=== PATIENT | female | born 1985 | race Caucasian/White ===

== ENCOUNTER 2019-09-16 10:49 | Inpatient (IN) | payer OTHER ==
[2019-09-16 11:56] VITALS: BMI 29.2
--- NOTE | 2019-09-16 12:48 | HP ---
CIWA Score Nausea/Vomitin (until this morning) Muscle Tremors: 4-Moderate,w/Arms Extend Anxiety: 3 Agitation: 4-Moderately Restless Paroxysmal Sweats: 2 Orientation: 0-Oriented Tacttile Disturbances: 0-None Auditory Disturbances: 0-None Visual Disturbances: 2-Mild Sensitivity Headache: 5-Severe CIWA-Ar Total Score: 22 - Admission Criteria OASAS Guidelines: Admission for Medically Managed Detox: Requires at least one of the followin. CIWA greater than 12 2. Seizures within the past 24 hours 3. Delirium tremens within the past 24 hours 4. Hallucinations within the past 24 hours 5. Acute intervention needed for co occurring medical disorder 6. Acute intervention needed for co occurring psychiatric disorder 7. Severe withdrawal that cannot be handled at a lower level of care (continued vomiting, continued diarrhea, abnormal vital signs) requiring intravenous medication and/or fluids 8. Admission [facility] Chief Complaint: Alcohol withdrawal Allergies/Adverse Reactions: Allergies Allergy/AdvReac Type Severity Reaction Status Date / Time No Known Allergies Allergy Verified 09/16/19 11:49 History of Present Illness: 33 y/o F with history of alcohol abuse presenting to [facility] because of alcohol withdrawal symptoms. Pt admits that she has been drinking for the past 14 yrs. It started in college as happy hour 2-3 times a week then gradually increased to daily alcohol intake. For the past week, she has been drinking about 3 pints of whiskey a day in between 2 packs of beers. She was initially sober for 1 year and picked up drinking again after losing her job with [employer] and living in a intermediate for the past 4 months. She endorsed history of blackouts in the past (3-4x) with last one being in 2016. She denies any seizures during withdrawals. She denies any other substance use. She has gone through detox 5 times with last detox in 2017 and relapsed immediately. She started outpatient, successfully completed it and remained sober until recently. She completed 28d rehab at [facility] after her outpatient. She went to [place] yesterday as she was severely withdrawing with symptoms of tremors, nausea, vomiting 3-4x NB yellow fluid, palpitations, diaphoresis. She received 2 librium pills and requested detox and that is why she is here. PMH : HLD Psych Hx: anxiety and depression was on meds and stopped as "she doesnt like to take pills" PSH: none Social Hx: currently living in intermediate, unemployed, poor oral intake VS 99.1F, 142/98 mmHg, 105 bpm, 22 CIWA 22 Utox: negative, NURY 0 PE: General : anxious and restless HEENT: PERRLA, flushed on the face Lung : VBS b/l Heart: tachycardic, RRR, no MRG Abdomen: some epigastric tenderness from vomiting Extremities: tremors on arm extension Plan : alcohol abuse : Valium detox - Ebola screening Have you traveled outside of the country in the last 21 days: No Have you had contact with anyone from an Ebola affected area: No Do you have a fever: No Patient History - Smoking Cessation Smoking history: Never smoked Initiated information on smoking cessation: No - Substances abused Alcohol Substance route: Oral Frequency: Daily Amount used: 7 24 oz beers and pint of whiskey Age of first use: 12 Date of last use: 09/15/19 Admission Physical Exam [facility] - Vital Signs Vital Signs: Vital Signs - 24 hr 09/16/19 11:43 Temperature 99.1 F Pulse Rate 105 H Respiratory 22 H Rate Blood Pressure 142/98 Cleared for Admission S - Detox or Rehab [facility] Level of Care: Medically Supervised Screened but not Admitted - Documentation of Visit Screened but not Admitted: No Breathalyzer - Breathalyzer Breathalyzer: 0 Urine Drug Screen - Test Device Lot number: [id number] Expiration date: 05/26/21 - Control Is test valid?: Yes - Results Drug screen NEGATIVE: Yes Inpatient Rehab Admission - Rehab Decision to Admit Inpatient rehab admission?: No
--- NOTE | 2019-09-16 13:49 | PN ---
"Teaching Attending Note Name of Resident: Raiza Chery ATTENDING PHYSICIAN STATEMENT I saw and evaluated the patient. I reviewed the resident's note and discussed the case with the resident. I agree with the resident's findings and plan as documented. SUBJECTIVE: 33 y.o. pt requesting detox from etoh use, reports binge- drinking x 1 week , prior sobriety x 1 year . OBJECTIVE:wnwd , anxious, tremors geovanni UE CV : tachycardia This report was requested by: Ekta Tenorio | Reference #: [id number] Others' Prescriptions Patient Name: Giana Degroot Date: 1985 Address: [address] [place] [address] Sex: Female Rx Written Rx Dispensed Drug Quantity Days Supply Prescriber Name 04/21/2019 04/24/2019 testosteron cyp 1000 mg/10 ml 10ml 5 Joslyn Ventura (REHABILITATION SERVICES COORDINATOR-[facility]) Vital Signs - 24 hr 09/16/19 11:43 Temperature 99.1 F Pulse Rate 105 H Respiratory 22 H Rate Blood Pressure 142/98 ASSESSMENT AND PLAN:Alcohol abuse - Valium detox"
[2019-09-16] MEDS ORDERED: MAG HYDROX/AL HYDROX/SIMETH 30 ML UNIT-DOSE CUP PO PRN (14:06)
[2019-09-16] MEDS ORDERED: BISMUTH SUBSALICYLATE 262 MG/15 ML BTL PO PRN (14:06)
[2019-09-16] MEDS ORDERED: MAGNESIUM HYDROX 2400MG/30ML ORAL SUSPENSION 30 ML CUP PO PRN (14:06)
[2019-09-16] MEDS ORDERED: ONDANSETRON *ODT* 4 MG TABLET SL PRN (14:06)
[2019-09-16] MEDS ORDERED: MENTHOL/PHENOL 1 EACH UD MM PRN (14:06)
[2019-09-16] MEDS ORDERED: MAGNESIUM CITRATE 300 ML BOTTLE PO PRN (14:06)
[2019-09-16] MEDS ORDERED: ACETAMINOPHEN 325 MG TABLET (FP) PO PRN ×2 (14:06)
[2019-09-16] MEDS ORDERED: hydrOXYzine PAMOATE 25 MG CAPSULE (FP) PO PRN (14:06)
[2019-09-16] MEDS ORDERED: diazePAM 5 MG TABLET PO PRN (14:07)
[2019-09-16] MEDS: diazePAM 5 MG TABLET PO SCH ×2 (15:18→22:20)
[2019-09-16 18:37] LABS: MCH 31.1 pg (25.7-33.7); MEAN CELL VOLUME 91.4 fl (80-96); MEAN PLT VOLUME 8.9 fl (7.5-11.1); PLATELET COUNT 351 K/MM3 (134-434); RBC 4.49 M/mm3 (3.60-5.2); RDW 15.5 % (11.6-15.6); WHITE BLOOD COUNT 7.4 K/mm3 (4.0-10.0)
[2019-09-16 18:57] LABS: ALBUMIN 4.1 g/dl (3.4-5.0); BILIRUBIN,TOTAL 1.3 mg/dL (0.2-1); BLOOD UREA NITROGEN 14.2 mg/dL (7-18); CALCIUM 9.1 mg/dL (8.5-10.1); CREATININE 0.7 mg/dL (0.55-1.3); POTASSIUM 3.9 mmol/L (3.5-5.1); TOT PROT 7.9 g/dl (6.4-8.2)
[2019-09-16] MEDS: THIAMINE HCL 100 MG TABLET (FP) PO SCH (22:20)
[2019-09-17] MEDS: diazePAM 5 MG TABLET PO SCH ×3 (05:41→22:05)
[2019-09-17] MEDS: IBUPROFEN 400 MG TABLET (FP) PO PRN (05:44)
[2019-09-17] MEDS: PRENATAL VITAMINS W/ FOLIC ACID TABLET (FP) PO SCH (10:17)
--- NOTE | 2019-09-17 12:15 | PN ---
[facility] CIWA - CIWA Score Nausea/Vomitin-No Nausea/No Vomiting Muscle Tremors: 3 Anxiety: 2 Agitation: 4-Moderately Restless Paroxysmal Sweats: 2 Orientation: 0-Oriented Tacttile Disturbances: 0-None Auditory Disturbances: 0-None Visual Disturbances: 0-None Headache: 0-None Present CIWA-Ar Total Score: 11 S Progress Note (SOAP) Subjective: sweats restless body aches shakes Objective: 09/17/19 12:14 Vital Signs Temperature 97.9 F 09/17/19 09:53 Pulse Rate 106 H 09/17/19 09:53 Respiratory Rate 18 09/17/19 09:53 Blood Pressure 144/83 09/17/19 09:53 O2 Sat by Pulse Oximetry (%) Laboratory Tests 09/16/19 09/16/19 09/16/19 14:40 14:40 14:40 WBC 7.4 RBC 4.49 Hgb 14.0 Hct 41.0 MCV 91.4 MCH 31.1 MCHC 34.0 RDW 15.5 Plt Count 351 MPV 8.9 Sodium 134 L Potassium 3.9 Chloride 102 Carbon Dioxide 24 Anion Gap 8 BUN 14.2 Creatinine 0.7 Est GFR (CKD-EPI)AfAm 130.10 Est GFR (CKD-EPI)NonAf 112.25 Random Glucose 87 Calcium 9.1 Total Bilirubin 1.3 H AST 70 H ALT 99 H Alkaline Phosphatase 112 Total Protein 7.9 Albumin 4.1 RPR Titer Nonreactive labs noted aaox3 ambulating no acute distress Assessment: 09/17/19 12:14 withdrawal sx Plan: continue detox increase fluids
[2019-09-17] MEDS: THIAMINE HCL 100 MG TABLET (FP) PO SCH (22:05)
[2019-09-17] MEDS: MELATONIN 5 MG TABLETS PO PRN (22:06)
[2019-09-18] MEDS: diazePAM 5 MG TABLET PO SCH ×2 (06:06→17:27)
[2019-09-18] MEDS: IBUPROFEN 400 MG TABLET (FP) PO PRN (06:07)
[2019-09-18] MEDS: PRENATAL VITAMINS W/ FOLIC ACID TABLET (FP) PO SCH (10:53)
--- NOTE | 2019-09-18 13:34 | PN ---
S CIWA - CIWA Score Nausea/Vomitin Muscle Tremors: None Anxiety: 3 Agitation: 0-Normal Activity Paroxysmal Sweats: No Perspiration Orientation: 0-Oriented Tacttile Disturbances: 1-Very Mild Itch/Numbness Auditory Disturbances: 2-Mild Harshness/Frighten Visual Disturbances: 0-None Headache: 0-None Present CIWA-Ar Total Score: 8 BHS Progress Note (SOAP) Subjective: Nausea, Interrupted Sleep, Body Aches, Anxious. Objective: PATIENT A & O X 3, OBSERVED AMBULATING ON DETOX UNIT UNASSISTED. IN NO ACUTE DISTRESS. 09/18/19 13:30 Vital Signs Temperature 97.3 F L 09/18/19 09:12 Pulse Rate 72 09/18/19 09:12 Respiratory Rate 18 09/18/19 09:12 Blood Pressure 125/77 09/18/19 09:12 O2 Sat by Pulse Oximetry (%) Laboratory Tests 09/16/19 09/16/19 09/16/19 14:40 14:40 14:40 WBC 7.4 RBC 4.49 Hgb 14.0 Hct 41.0 MCV 91.4 MCH 31.1 MCHC 34.0 RDW 15.5 Plt Count 351 MPV 8.9 Sodium 134 L Potassium 3.9 Chloride 102 Carbon Dioxide 24 Anion Gap 8 BUN 14.2 Creatinine 0.7 Est GFR (CKD-EPI)AfAm 130.10 Est GFR (CKD-EPI)NonAf 112.25 Random Glucose 87 Calcium 9.1 Total Bilirubin 1.3 H AST 70 H ALT 99 H Alkaline Phosphatase 112 Total Protein 7.9 Albumin 4.1 RPR Titer Nonreactive LABS NOTED. Assessment: 09/18/19 13:31 WITHDRAWAL SYMPTOMS. HYPERBILIRUBINEMIA. ELEVATED AST LEVEL. ELEVATED ALT LEVEL. Plan: CONTINUE DETOX. PRN ZOFRAN SL FOR NAUSEA. PRN MELATONIN FOR INSOMNIA. PATIENT SCHEDULED FOR DISCHARGE FROM DETOX UNIT TOMORROW.
[2019-09-18] MEDS: THIAMINE HCL 100 MG TABLET (FP) PO SCH (21:42)
[2019-09-18] MEDS: MELATONIN 5 MG TABLETS PO PRN (21:42)
[2019-09-19] MEDS ORDERED: diazePAM 5 MG TABLET PO ONE ×2 (06:00→18:00)
[2019-09-19] MEDS ORDERED: CYCLOBENZAPRINE HCL 10 MG TABLET (FP) PO PRN (09:53)
[2019-09-19] MEDS ORDERED: hydrOXYzine PAMOATE 25 MG CAPSULE (FP) PO PRN (10:00)
[2019-09-19] MEDS: PRENATAL VITAMINS W/ FOLIC ACID TABLET (FP) PO SCH (10:19)
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
--- NOTE | 2019-09-19 16:17 | PN ---
[facility] CIWA - CIWA Score Nausea/Vomitin-No Nausea/No Vomiting Muscle Tremors: 2 Anxiety: 2 Agitation: 2 Paroxysmal Sweats: 2 Orientation: 0-Oriented Tacttile Disturbances: 0-None Auditory Disturbances: 0-None Visual Disturbances: 0-None Headache: 0-None Present CIWA-Ar Total Score: 8 BHS Progress Note (SOAP) Subjective: Anxious, tremor, sweating, right leg (calf) spasm. Patient requested to leave tomorrow instead of today due to increased withdrawal sxs and stated she doesn' t feel ready for discharge. Objective: 09/19/19 16:12 Last Vital Signs Temp Pulse Resp BP Pulse Ox 97.5 F L 81 16 151/79 09/19/19 13:45 09/19/19 13:45 09/19/19 13:45 09/19/19 13:45 Elevated b/p: denies htn, could be r/t withdrawal sxs Laboratory Tests 09/16/19 09/16/19 09/16/19 14:40 14:40 14:40 WBC 7.4 RBC 4.49 Hgb 14.0 Hct 41.0 MCV 91.4 MCH 31.1 MCHC 34.0 RDW 15.5 Plt Count 351 MPV 8.9 Sodium 134 L Potassium 3.9 Chloride 102 Carbon Dioxide 24 Anion Gap 8 BUN 14.2 Creatinine 0.7 Est GFR (CKD-EPI)AfAm 130.10 Est GFR (CKD-EPI)NonAf 112.25 Random Glucose 87 Calcium 9.1 Total Bilirubin 1.3 H AST 70 H ALT 99 H Alkaline Phosphatase 112 Total Protein 7.9 Albumin 4.1 RPR Titer Nonreactive Labs reviewed: total bilirubin 1.3, AST/ALT 70/99 Assessment: 09/19/19 16:15 Withdrawal sxs Noted with elevated LFTs Plan: Continue detox Encouraged PO water intake Discharge canceled for today due to increased withdrawal sxs, can consider discharging patient on Friday Elevated LFTs: most likely r/t to alcoholism, repeat hepatic function panel in AM
[2019-09-19] MEDS ORDERED: cloNIDine HCL 0.1 MG TABLET PO PRN (16:19)
[2019-09-19] MEDS: THIAMINE HCL 100 MG TABLET (FP) PO SCH (21:10)
[2019-09-19] MEDS ORDERED: traZODone HCL 50 MG TABLET (FP) PO SCH (22:00)
[2019-09-20] MEDS ORDERED: diazePAM 5 MG TABLET PO ONE (06:00)
[2019-09-20] MEDS ORDERED: diazePAM 5 MG TABLET PO SCH (06:00)
--- NOTE | 2019-09-20 09:13 | DS ---
[facility] Detox Discharge Summary Admission Date: 09/16/19 Discharge Date: 09/20/19 - History Present History: Alcohol Dependence - Physical Exam Results Vital Signs: Vital Signs Temperature 97.9 F 09/20/19 06:43 Pulse Rate 73 09/20/19 06:43 Respiratory Rate 18 09/20/19 06:43 Blood Pressure 119/74 09/20/19 06:43 O2 Sat by Pulse Oximetry (%) Pertinent Admission Physical Exam Findings: pt arrived in withdrawals Vital Signs Temperature 97.9 F 09/20/19 06:43 Pulse Rate 73 09/20/19 06:43 Respiratory Rate 18 09/20/19 06:43 Blood Pressure 119/74 09/20/19 06:43 O2 Sat by Pulse Oximetry (%) Laboratory Tests 09/16/19 09/16/19 09/16/19 14:40 14:40 14:40 WBC 7.4 RBC 4.49 Hgb 14.0 Hct 41.0 MCV 91.4 MCH 31.1 MCHC 34.0 RDW 15.5 Plt Count 351 MPV 8.9 Sodium 134 L Potassium 3.9 Chloride 102 Carbon Dioxide 24 Anion Gap 8 BUN 14.2 Creatinine 0.7 Est GFR (CKD-EPI)AfAm 130.10 Est GFR (CKD-EPI)NonAf 112.25 Random Glucose 87 Calcium 9.1 Total Bilirubin 1.3 H AST 70 H ALT 99 H Alkaline Phosphatase 112 Total Protein 7.9 Albumin 4.1 RPR Titer Nonreactive pt arrived in withdrawals aao3 ambulating no acute distress - Treatment Hospital Course: Detox Protocol Followed, Detoxed Safely, Responded well, Discharged Condition Good, Rehab Referral Accepted Patient has Accepted a Rehab Referral to: pt declined rehab; referral provided - Medication Discharge Medications: Ambulatory Orders NK [No Known Home Medication] 09/16/19 - Diagnosis (1) Alcohol use disorder Current Visit: Yes Status: Acute (2) Elevated alanine aminotransferase (ALT) level Current Visit: Yes Status: Acute (3) Elevated aspartate aminotransferase level Current Visit: Yes Status: Acute (4) Hyperbilirubinemia Current Visit: Yes Status: Acute (5) Depressive disorder Current Visit: No Status: Chronic (6) PTSD (post-traumatic stress disorder) Current Visit: No Status: Chronic - AMA Did Patient Leave Against Medical Advice: No
[2019-09-20 09:20] VITALS: BP 138/96; TEMP 96.6
[2019-09-20] MEDS: PRENATAL VITAMINS W/ FOLIC ACID TABLET (FP) PO SCH (09:29)
[2019-09-20 09:31] VITALS: PULSE 92
[2019-09-20 10:12] LABS: ALBUMIN 3.6 g/dl (3.4-5.0); BILIRUBIN,DIRECT 0.2 mg/dL (0.0-0.2); BILIRUBIN,TOTAL 0.5 mg/dL (0.2-1); TOT PROT 7.2 g/dl (6.4-8.2)
[2019-09-21] MEDS ORDERED: diazePAM 5 MG TABLET PO ONE (06:00)
== END 2019-09-20 09:42 | disposition home or self-care (01) | DRG 775 ==
LOC: YASAS 10:49 → Y6N 14:41
PROVIDERS: ADMIT Allergy & Immunology; ATTEND Allergy & Immunology
PROC: HZ2ZZZZ Detoxification Services for Substance Abuse Treatment (ICD-10-PCS; principal; 2019-09-16)
DX: F10.230 Alcohol dependence with withdrawal, uncomplicated (principal); F41.8 Other specified anxiety disorders; F32.9 Major depressive disorder, single episode, unspecified; F43.10 Post-traumatic stress disorder, unspecified; E80.6 Other disorders of bilirubin metabolism; R94.5 Abnormal results of liver function studies; R03.0 Elevated blood-pressure reading, without diagnosis of hypertension
CPT/HCPCS: 36415; 80053; 80076; 85027; 86593

== ENCOUNTER 2022-06-26 15:45 | Inpatient (IN) | payer OTHER ==
[2022-06-26 16:27] VITALS: BMI 26.8
[2022-06-26] MEDS ORDERED: BENZOCAINE/MENTHOL (CHLORASEPTIC ) LOZENGE MM PRN (17:52)
[2022-06-26] MEDS ORDERED: LOPERAMIDE HCL 2 MG CAPSULE PO PRN (17:52)
[2022-06-26] MEDS ORDERED: ACETAMINOPHEN 325 MG TABLET (FP) PO PRN ×2 (17:52)
[2022-06-26] MEDS ORDERED: DICYCLOMINE HCL 10 MG CAPSULE PO PRN (17:52)
[2022-06-26] MEDS ORDERED: MAGNESIUM HYDROX 2400MG/30ML ORAL SUSPENSION 30 ML CUP PO PRN (17:52)
[2022-06-26] MEDS ORDERED: MAG HYDROX/AL HYDROX/SIMETH 30 ML UNIT-DOSE CUP PO PRN (17:52)
[2022-06-26] MEDS ORDERED: BISMUTH SUBSALICYLATE 524 MG/30 ML PO PRN (17:52)
[2022-06-26] MEDS ORDERED: IBUPROFEN 600 MG TABLET (FP) PO PRN (17:52)
[2022-06-26] MEDS ORDERED: ONDANSETRON *ODT* 4 MG TABLET SL PRN (17:52)
[2022-06-26] MEDS ORDERED: NICOTINE 10 MG CARTRIDGE (INHALER) IH PRN (17:52)
[2022-06-26] MEDS ORDERED: MAGNESIUM CITRATE 300 ML BOTTLE PO PRN (17:52)
[2022-06-26] MEDS ORDERED: IBUPROFEN 400 MG TABLET (FP) PO PRN (17:52)
[2022-06-26] MEDS ORDERED: diazePAM 5 MG TABLET ONE (18:32)
[2022-06-26] MEDS ORDERED: IBUPROFEN 600 MG TABLET (FP) PO ONE (18:32)
[2022-06-26] MEDS ORDERED: hydrOXYzine PAMOATE 25 MG CAPSULE (FP) PO ONE (18:32)
[2022-06-26] MEDS: diazePAM 5 MG TABLET PO SCH ×2 (18:37→23:02)
[2022-06-26] MEDS: hydrOXYzine PAMOATE 25 MG CAPSULE (FP) PO SCH ×2 (18:37→23:02)
[2022-06-26] MEDS ORDERED: NITROFURANTOIN MACROCRYSTAL 50 MG CAPSULE (FP) PO SCH (19:15)
[2022-06-26] MEDS: PRENATAL VITAMINS W/ FOLIC ACID TABLET (FP) PO SCH (19:20)
[2022-06-26] MEDS: CLOTRIMAZOLE/BETAMET DIPROP 15 GM TUBE TP SCH ×2 (19:31→23:03)
[2022-06-26] MEDS ORDERED: NITROFURANTOIN MACROCRYSTAL 50 MG CAPSULE (FP) PO ONE (22:00)
[2022-06-26] MEDS ORDERED: MELATONIN 5 MG TABLETS PO SCH (22:00)
[2022-06-26 22:23] LABS: PH,URINE 7.5 (5.0-8.0); URINE APPEARANCE CLEAR; URINE BILIRUBIN NEGATIVE (NEGATIVE); URINE COLOR YELLOW; URINE GLUCOSE (UA) NEGATIVE (NEGATIVE); URINE KETONE TRACE (NEGATIVE); URINE LEUK ESTERASE NEGATIVE (NEGATIVE); URINE NITRITE NEGATIVE (NEGATIVE); URINE PROTEIN NEGATIVE (NEGATIVE)
[2022-06-26] MEDS: THIAMINE HCL 100 MG TABLET (FP) PO SCH (23:02)
[2022-06-27] MEDS: diazePAM 5 MG TABLET PO SCH ×4 (05:51→22:51)
[2022-06-27] MEDS: hydrOXYzine PAMOATE 25 MG CAPSULE (FP) PO SCH ×5 (05:51→22:51)
[2022-06-27] MEDS: PRENATAL VITAMINS W/ FOLIC ACID TABLET (FP) PO SCH (10:46)
[2022-06-27 11:42] LABS: HEMATOCRIT 41.4 % (32.4-45.2); HEMOGLOBIN 13.9 GM/dL (10.7-15.3); MCHC 33.5 g/dl (32.0-36.0); MEAN CELL VOLUME 92.5 fl (80-96); MEAN PLT VOLUME 8.7 fl (7.5-11.1); PLATELET COUNT 224 10^3/uL (134-434); RBC 4.47 M/mm3 (3.60-5.2); RDW 14.4 % (11.6-15.6); WHITE BLOOD COUNT 4.7 K/mm3 (4.0-10.0)
[2022-06-27 12:05] LABS: CALCIUM 8.7 mg/dL (8.5-10.1)
[2022-06-27 12:06] LABS: ALBUMIN 3.6 g/dl (3.4-5.0); BLOOD UREA NITROGEN 9.4 mg/dL (7-18)
[2022-06-27 12:08] LABS: TOT PROT 7.3 g/dl (6.4-8.2)
[2022-06-27 12:09] LABS: CREATININE 0.7 mg/dL (0.55-1.3)
[2022-06-27] MEDS: CLOTRIMAZOLE/BETAMET DIPROP 15 GM TUBE TP SCH ×2 (14:31→23:14)
[2022-06-27] MEDS: THIAMINE HCL 100 MG TABLET (FP) PO SCH (22:51)
[2022-06-27] MEDS: SUVOREXANT 10 MG TABLET PO PRN (22:52)
[2022-06-28] MEDS: diazePAM 5 MG TABLET PO SCH ×3 (06:00→22:27)
[2022-06-28] MEDS: hydrOXYzine PAMOATE 25 MG CAPSULE (FP) PO SCH ×5 (06:00→22:27)
[2022-06-28] MEDS: CLOTRIMAZOLE/BETAMET DIPROP 15 GM TUBE TP SCH ×2 (10:39→23:21)
[2022-06-28] MEDS: PRENATAL VITAMINS W/ FOLIC ACID TABLET (FP) PO SCH (10:39)
[2022-06-28] MEDS: diazePAM 5 MG TABLET PO PRN (10:39)
[2022-06-28] MEDS ORDERED: cloNIDine HCL 0.1 MG TABLET PO ONE (14:00)
[2022-06-28] MEDS: SUVOREXANT 10 MG TABLET PO PRN (22:26)
[2022-06-28] MEDS: THIAMINE HCL 100 MG TABLET (FP) PO SCH (22:27)
[2022-06-28] MEDS: METHOCARBAMOL 500 MG TABLET PO PRN (22:27)
[2022-06-29] MEDS: diazePAM 5 MG TABLET PO SCH ×2 (06:27→17:45)
[2022-06-29] MEDS: hydrOXYzine PAMOATE 25 MG CAPSULE (FP) PO SCH ×5 (06:27→22:38)
[2022-06-29] MEDS: METHOCARBAMOL 500 MG TABLET PO PRN ×2 (10:43→22:38)
[2022-06-29] MEDS: PRENATAL VITAMINS W/ FOLIC ACID TABLET (FP) PO SCH (10:43)
[2022-06-29] MEDS: diazePAM 5 MG TABLET PO PRN (10:44)
[2022-06-29] MEDS: CLOTRIMAZOLE/BETAMET DIPROP 15 GM TUBE TP SCH ×2 (10:45→22:40)
[2022-06-29] MEDS: SUVOREXANT 10 MG TABLET PO PRN (22:37)
[2022-06-29] MEDS: THIAMINE HCL 100 MG TABLET (FP) PO SCH (22:38)
[2022-06-30] MEDS ORDERED: hydrOXYzine PAMOATE 25 MG CAPSULE (FP) PO ONE (02:11)
[2022-06-30] MEDS ORDERED: diazePAM 5 MG TABLET PO ONE (06:00)
[2022-06-30] MEDS: hydrOXYzine PAMOATE 25 MG CAPSULE (FP) PO SCH (06:09)
[2022-06-30 07:14] VITALS: RESP 18
[2022-06-30 09:19] VITALS: BP 140/90; PULSE 99; TEMP 97.3
== END 2022-06-30 09:40 | disposition home or self-care (01) | DRG 775 ==
LOC: EDSEX → YASAS 15:45 → Y3N 19:00
PROVIDERS: ADMIT Allergy & Immunology; ATTEND Surgery
PROC: HZ2ZZZZ Detoxification Services for Substance Abuse Treatment (ICD-10-PCS; principal; 2022-06-26)
DX: F10.230 Alcohol dependence with withdrawal, uncomplicated (principal); F10.282 Alcohol dependence with alcohol-induced sleep disorder; F43.10 Post-traumatic stress disorder, unspecified; F41.9 Anxiety disorder, unspecified; F32.A Depression, unspecified; E78.5 Hyperlipidemia, unspecified; Z90.13 Acquired absence of bilateral breasts and nipples; Z87.890 Personal history of sex reassignment; Z87.891 Personal history of nicotine dependence; Z62.810 Personal history of physical and sexual abuse in childhood; Z56.0 Unemployment, unspecified; Z59.01 Sheltered homelessness
CPT/HCPCS: 36415; 80053; 81003; 85027; 86780; 87811; C9803-CS; U0003; U0005